=== PATIENT | male | born 1965 | race African-American/Black ===

== ENCOUNTER 2018-05-13 17:02 | Emergency (ER) | payer OTHER ==
--- NOTE | 2018-05-13 18:04 | EDM.PDOC ---
ED HPI GENERAL MEDICAL PROBLEM - General Chief Complaint: Cardiovascular Problem Stated Complaint: HIGH BLOOD PRESSURE Time Seen by Provider: 05/13/18 17:36 Source of Information: Reports: Patient, RN Notes Reviewed History Limitations: Reports: No Limitations - History of Present Illness INITIAL COMMENTS - FREE TEXT/NARRATIVE: Patient is a 52-year-old male who presents to the ED for evaluation of high blood pressure. He states that he has a diagnosis of hypertension. He was on blood pressure medications, 5 mg Norvasc and 12.5 mg hydrochlorothiazide. He states that he used to live in [place] and as of January he currently resides in [place] so he has not had a chance to get his prescription sent over or set up with a primary care provider. He states that he has not been on his blood pressure medication since around January. 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 He states that he went to a walk-in clinic today and his blood pressure at that point in time was 220/112 it was then that they directed him to come to the ED for management. Patient denies any increased blood pressure symptoms such as headache, blurred vision, chest pain, shortness of breath. He notes he is a half pack per day smoker and is an occasional drinker. He relates that he doesn 't have a very healthy diet either. - Related Data Allergies Allergy/AdvReac Type Severity Reaction Status Date / Time No Known Allergies Allergy Verified 05/13/18 17:20 Home Meds: Home Meds amLODIPine Besylate [Amlodipine Besylate] 5 mg PO DAILY #30 tablet 05/13/18 [Rx] amLODIPine Besylate [Norvasc] 5 mg PO DAILY 05/13/18 [History] hydroCHLOROthiazide [Hydrochlorothiazide] 12.5 mg PO DAILY 05/13/18 [History] hydroCHLOROthiazide [Hydrochlorothiazide] 25 mg PO DAILY #30 tablet 05/13/18 [Rx ] Past Medical History Cardiovascular History: Reports: Hypertension - Infectious Disease History Infectious Disease History: Reports: Chicken Pox - Past Surgical History HEENT Surgical History: Reports: Oral Surgery Musculoskeletal Surgical History: Reports: Knee Replacement Social & Family History - Family History Family Medical History: Noncontributory - Tobacco Use Smoking Status *Q: Current Every Day Smoker Years of Tobacco use: 25 Packs/Tins Daily: 0.5 - Caffeine Use Caffeine Use: Reports: Coffee - Recreational Drug Use Recreational Drug Use: No ED ROS GENERAL - Review of Systems Review Of Systems: See Below Constitutional: Reports: No Symptoms HEENT: Reports: No Symptoms Respiratory: Reports: No Symptoms Cardiovascular: Reports: Blood Pressure Problem Endocrine: Reports: No Symptoms GI/Abdominal: Reports: No Symptoms : Reports: No Symptoms Musculoskeletal: Reports: No Symptoms Skin: Reports: No Symptoms Neurological: Reports: No Symptoms Psychiatric: Reports: No Symptoms Hematologic/Lymphatic: Reports: No Symptoms Immunologic: Reports: No Symptoms ED EXAM, GENERAL - Physical Exam Exam: See Below Exam Limited By: No Limitations General Appearance: Alert, WD/WN, No Apparent Distress, Obese (Morbidly obese -[place] male) Eye Exam: Bilateral Eye: Normal Fundi, Normal Inspection Ears: Normal External Exam Nose: Normal Inspection Throat/Mouth: Normal Inspection, Normal Lips, Normal Teeth, Normal Gums, Normal Oropharynx, Normal Voice, No Airway Compromise Head: Atraumatic, Normocephalic Neck: Normal Inspection Respiratory/Chest: No Respiratory Distress, Lungs Clear, Normal Breath Sounds, No Accessory Muscle Use, Chest Non-Tender Cardiovascular: Normal Peripheral Pulses, Regular Rate, Rhythm, No Edema, No JVD , No Murmur, No Rub GI/Abdominal: Normal Bowel Sounds, Soft, Non-Tender, No Distention, No Mass Extremities: Normal Inspection, No Pedal Edema, Normal Capillary Refill Neurological: Alert, Oriented, Normal Cognition, No Motor/Sensory Deficits Psychiatric: Normal Affect, Normal Mood Skin Exam: Warm, Dry, Intact, Normal Color, No Rash EKG INTERPRETATION EKG Date: 05/13/18 Time: 17:41 Rhythm: NSR Rate (Beats/Min): 80 [place]: Normal P-Wave: Present QRS: Normal ST-T: Normal QT: Normal Comparison: NA - No Prior EKG EKG Interpretation Comments: reviewed with Dr. Reid Course - Vital Signs Last Recorded V/S: Last Vital Signs Temp 98.1 F 05/13/18 17:17 Pulse 93 05/13/18 17:17 Resp 20 05/13/18 17:17 BP 196/119 H 05/13/18 17:17 Pulse Ox 94 L 05/13/18 17:17 - Orders/Labs/Meds Orders: Active Orders 24 hr Category Date Time Status EKG 12 Lead [EKG Documentation Completion] [RC] STAT Care 05/13/18 17:31 Active - Re-Assessments/Exams Free Text/Narrative Re-Assessment/Exam: 05/13/18 18:06 Patient presents to the ED for the evaluation of increased blood pressure. I have discussed the case with Dr. Reid, and due to his complete lack of concerning symptoms, I will prescribe him his previous medications so that he may get his blood pressure under control. I will further recommend that he set up appointment with a primary care provider of his choosing and get a complete physical to include lab work. I will give him further recommendations for diet and stopping smoking. Departure - Departure Time of Disposition: 18:11 Disposition: Home, Self-Care 01 Condition: Fair Clinical Impression: Essential hypertension Instructions: DASH Eating Plan, Managing Your Hypertension Referrals: PCP,None [Primary Care Provider] - Additional Instructions: You have been evaluated in the ED today for your blood pressure. You have been provided with prescriptions for amlodipine 5 mg, and 25 mg hydrochlorothiazide. Please take these as directed. Strongly recommend that you follow up with a family practice provider of your choosing our clinic number [phone], and a family practice provider can provide you with these services. You will need a complete physical to include lab work to assess end organ damage due to hypertension. Your medications have been electronically sent to [facility]. Please pick these up tomorrow. Recommend that you obtain a blood pressure machine for home use and order yourself a large size cuff so that you can take your blood pressure at home regularly. Please return to the ED if your symptoms change or worsen. - My Orders Last 24 Hours: My Active Orders 05/13/18 17:31 EKG 12 Lead [EKG Documentation Completion] [RC] STAT - Assessment/Plan Last 24 Hours: My Active Orders 05/13/18 17:31 EKG 12 Lead [EKG Documentation Completion] [RC] STAT
[2018-05-13] MEDS ORDERED: amLODIPine 5 MG Tab PO SCH (18:10)
[2018-05-13] MEDS ORDERED: Hydrochlorothiazide 25 MG Tab PO SCH (18:10)
== END 2018-05-13 18:33 | disposition home or self-care (01) ==
LOC: JD.ED 17:02
DX: I10 Essential (primary) hypertension (principal); F17.210 Nicotine dependence, cigarettes, uncomplicated; Z79.899 Other long term (current) drug therapy
CPT/HCPCS: 93005; 99283; A9270; 93010